=== PATIENT | male | born 1950 | race Caucasian/White ===

== ENCOUNTER → 2018-08-18 | Outpatient (CLI) | payer OTHER ==
--- NOTE | 2018-08-19 07:18 | CTL ---
EXAMINATION TYPE: CT Low Dose Lung DATE OF EXAM ORDERED: 08/18/2018 HISTORY: Personal history of tobacco abuse. Lung cancer screening CT DLP: 70.[address] CTDI: 1.7 mGy Automated exposure control for dose reduction was used. SCREENING VISIT: Initial COMPARISON: None TECHNIQUE: Low dose computed tomography scan was performed through the chest at 1 mm thick sections a nd reconstructed images in the coronal plane at [address] DIAGNOSTIC QUALITY: Satisfactory FINDINGS: LUNG NODULES: Present, detailed below: There is ar 4 mm solid nodule within the medial right upper lobe on series 4 image 57. There is a 4 mm pulmonary nodule within the posterior right upper lobe on image 70, solid in nature. There is a 3 mm pulmonary nodule within the right middle lobe on image 217. This is solid in nature. There is a 6 mm calcified benign granuloma within the medial right lower lobe on image 276. There is a 2 mm pulmonary nodule within the right lower lobe at the costophrenic angle on series 320, also solid in nature. 2 mm solid pulmonary nodule is seen in a subpleural location in the right lower lobe on image 298. Scattered subpleural less than 2 mm micronodules are seen on the left such as on image 69 through 71 laterally and image 80. Multiple others are scattered throughout the left upper lobe in a subpleural location, none greater than 2 mm. There is a 3 mm pulmonary nodule in the left upper lobe anteriorly on image 81. This is solid in natu re. LUNGS: COPD: Severity: Moderate Fibrosis: Severity: None Lymph nodes: Nonenlarged. Benign calcified mediastinal lymph nodes are noted. Other findings: Biapical pleural-parenchymal scarring. RIGHT PLEURAL SPACE: Effusion: None Calcification: None Thickening: None Pneumothorax: None LEFT PLEURAL SPACE: Effusion: None Calcification: None Thickening: None Pneumothorax: None HEART: Heart Size: Normal Coronary calcification: None Pericardial effusion: None OTHER FINDINGS: Upper abdomen: Cholelithiasis is incidentally noted. There is a too small to accurately characterize probable left hepatic lobe subcentimeter cyst. Bony thorax: Multilevel mild to moderate degenerative changes of the spine are seen. Supraclavicular region: Unremarkable IMPRESSION: Multiple subcentimeter bilateral pulmonary nodules corresponding to a lung RADS 2 with un derlying moderate pulmonary emphysema. Surveillance is recommended with low-dose chest CT in 12 month s given the small size of these nodules. FOLLOW UP CT CHEST RECOMMENDATION: Annual low dose CT chest is recommended for surveillance. CT LUNG RAD: Lung-Rad 2 Benign Appearance or Behavior
== END ==
LOC: RADCTMAIN 16:00
PROVIDERS: ATTEND Family Medicine
DX: Z12.2 Encounter for screening for malignant neoplasm of respiratory organs (principal); Z87.891 Personal history of nicotine dependence